=== PATIENT | female | born 1955 | race Caucasian/White ===

== ENCOUNTER → 2016-08-02 | Outpatient (CLI) | payer OTHER | LOC: BRMIMAGING 13:29 | PROVIDERS: ATTEND Family Medicine | DX: Z12.31 Encounter for screening mammogram for malignant neoplasm of breast (principal) | CPT/HCPCS: G0202 ==

== ENCOUNTER → 2017-07-11 | Outpatient (CLI) | payer OTHER | LOC: CIMAGING 12:43 | PROVIDERS: ATTEND Family Medicine | DX: R23.4 Changes in skin texture (principal); N64.59 Other signs and symptoms in breast | CPT/HCPCS: 76641-PO ==

== ENCOUNTER → 2017-08-31 | Outpatient (CLI) | payer OTHER | LOC: BRMIMAGING 16:54 | PROVIDERS: ATTEND Family Medicine | DX: M79.672 Pain in left foot (principal) | CPT/HCPCS: 73610-PO; 73630-PO ==

== ENCOUNTER → 2018-01-15 | Outpatient (CLI) | payer OTHER | LOC: CIMAGING 13:15 | PROVIDERS: ATTEND Family Medicine | DX: N63.13 Unspecified lump in the right breast, lower outer quadrant (principal) | CPT/HCPCS: 76641-PO ==